=== PATIENT | female | born 2000 | race Caucasian/White ===

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

== ENCOUNTER 2019-02-05 14:05 | Emergency (ER) | payer SELFPAY ==
[2019-02-05 14:05] VITALS: O2SAT 98
[2019-02-05 15:04] VITALS: BP 135/76; PULSE 102; RESP 18; TEMP 97.2
== END 2019-02-05 14:25 | disposition home or self-care (01) | DRG 159 ==
LOC: ED 14:05
DX: K04.7 Periapical abscess without sinus (principal)
CPT/HCPCS: 99282